=== PATIENT | female | born 1995 | race Caucasian/White ===

== ENCOUNTER 2020-09-26 04:15 | Inpatient (IN) | payer BC ==
[~2020-09-26] VITALS: Ht 170.2 cm; Wt 85.7 kg
[~2020-09-26 04:15] MED LIST: ALEVE220 M1 PO; ALLER-TEC10 MG PO; DEPO-PROVE150 MG/1 M IM
--- NOTE | 2020-09-26 10:20 | PR ---
[facility] [address] [place], [place] [address] Signed Progress Notes IP Datetime Report Generated by CPN: 09/26/2020 10:19 PROGRESS NOTES: [id number] Impression: Reassuring Heart Rate; Rupture of Membranes Procedures: Artificial ROM Plan: Continue Present Management VITAL SIGNS: [id number] Vital Signs: Reviewed EXAM: [id number] Dilatation: 2.0 Effacement: 90 Station: -2 Contractions: Ctx q 2-5 min, tracing poorly MEMBRANES: [id number] Membranes Status: Intact Comments: 25 yo @ 41 1/7 weeks gestation Progressed from 1 to 2cm, very painful with contractions, admitted Epidural placed, pt comfortable and able to nap AROM performed yielding small amount of thick meconium fluid Anticipate augmentation with pitocin if no further cervical change in next 1-2 hours. FETUS A: [id number] FHR Baseline: 130 Variability: Moderate 6-25bpm Accelerations: None Decelerations: None FHR Category: Category I Presentation: Vertex FETUS B: [id number] Signing Physician: Shi Coleman DO Copies: ~ *Electronically Signed* 09/26/20 1019 SHI COLEMAN DO PATIENT NAME: JAD GAMEZ PROGRESS NOTE DATE OF : 97 PHYSICIAN: SHI COLEMAN #: [id number] REPORT IS CONFIDENTIAL AND NOT TO BE RELEASED WITHOUT AUTHORIZATION
--- NOTE | 2020-09-26 15:02 | PR ---
[facility] [address] [place], [place] [address] Signed Progress Notes IP Datetime Report Generated by CPN: 09/26/2020 15:02 PROGRESS NOTES: [id number] Impression: Reassuring Heart Rate; Rupture of Membranes Procedures: Intrauterine Pressure Catheter; Scalp Electrode Plan: Continue Present Management; Augmentation VITAL SIGNS: [id number] Vital Signs: Reviewed EXAM: [id number] Dilatation: 4.0 Effacement: 90 Station: -2 Contractions: Ctx q 2-5 min, tracing poorly MEMBRANES: [id number] Membranes Status: Ruptured Comments: 25 yo @ 41.1 weeks gestation -s/p epidural, comfortable -s/p AROM small amount thick meconium fluid FSE and IUPC placed without difficulty Continue augmentation with pitocin, titrate to adequate contractions FETUS A: [id number] FHR Baseline: 130 Variability: Moderate 6-25bpm Accelerations: None Decelerations: None FHR Category: Category I Presentation: Vertex FETUS B: [id number] Signing Physician: Shi Coleman DO Copies: ~ *Electronically Signed* 09/26/20 1502 SHI COLEMAN DO PATIENT NAME: JAD GAMEZ PROGRESS NOTE DATE OF : 97 PHYSICIAN: SHI COLEMAN #: [id number] REPORT IS CONFIDENTIAL AND NOT TO BE RELEASED WITHOUT AUTHORIZATION
--- NOTE | 2020-09-26 17:34 | PR ---
[facility] [address] [facility] [place], [place] [address] Signed Progress Notes IP Datetime Report Generated by CPRoderick: 09/26/2020 17:34 PROGRESS NOTES: [id number] Impression: Reassuring Heart Rate; Rupture of Membranes Procedures: Amnio Infusion Plan: Continue Present Management; Augmentation VITAL SIGNS: [id number] Vital Signs: Reviewed EXAM: [id number] Dilatation: 4.0 Effacement: 90 Station: -1 Contractions: Ctx q 2-5 min, tracing poorly MEMBRANES: [id number] Membranes Status: Ruptured Comments: Currently adequate contractions, continue pitocin Plan: start amnioinfusion, 250mL bolus then 125mL/hr, recheck cervix in 30 minutes FETUS A: [id number] FHR Baseline: 130 Variability: Moderate 6-25bpm Accelerations: None Decelerations: None FHR Category: Category I Presentation: Vertex FETUS B: [id number] Signing Physician: Shi Coleman DO Copies: ~ *Electronically Signed* 09/26/20 1734 SHI COLEMAN DO PATIENT NAME: JAD GAMEZ PROGRESS NOTE DATE OF : 97 PHYSICIAN: SHI COLEMAN DO RPT #: [id number] REPORT IS CONFIDENTIAL AND NOT TO BE RELEASED WITHOUT AUTHORIZATION
--- NOTE | 2020-09-26 18:03 | PR ---
[facility] [address] [place], [place] [address] Signed Progress Notes IP Datetime Report Generated by CPN: 09/26/2020 18:03 PROGRESS NOTES: [id number] Impression: Non-reassuring Heart Rate Procedures: Amnio Infusion Plan: Deliver- Section VITAL SIGNS: [id number] Vital Signs: Reviewed EXAM: [id number] Dilatation: 4.0 Effacement: 90 Station: -1 Contractions: Ctx q 2-5 min, tracing poorly MEMBRANES: [id number] Membranes Status: Ruptured Comments: Prolonged deceleration, 4 min @ 90 bpm starting shortly after onset of amnioinfusion. Pitocin discontinued. Cervical check: /-2 with significant swelling/edema of cervix. Discussed with pt and FOB non-reassuring heart rate tracing, remote from delivery, with cervical swelling. Recommended delivery. Risks, benefits, alternatives discussed and pt and FOB elect to proceed with . Consent signed. Plan PLTCS with Ancef 2g and Azithromycin 500mg IV. OR team notified, track service worker Dr. Loomis notified, Dr. Moreno (assist) notified. FETUS A: [id number] FHR Baseline: 130 Variability: Moderate 6-25bpm Accelerations: None Decelerations: None FHR Category: Category I Presentation: Vertex FETUS B: [id number] Signing Physician: Shi Coleman DO Copies: ~ *Electronically Signed* 09/26/20 0641 SHI COLEMAN DO PATIENT NAME: JAD GAMEZ DAINA PROGRESS NOTE DATE OF : 97 PHYSICIAN: SHI COLEMAN #: [id number] REPORT IS CONFIDENTIAL AND NOT TO BE RELEASED WITHOUT AUTHORIZATION
--- NOTE | 2020-09-26 19:22 | NUR ---
09/26/201921 Tracy Chapman 1910: PT TO ROOM 103 FOR PACU RECOVERY. AWAKE AND ALERT. VAN WILL AT THE BEDSIDE TO PERFORM TAP BLOCKS. VSS, RESP EVEN AND UNLABORED. O2 SAT >96% ON RA. PT DENIES PAIN AND NAUSEA. FUNDUS FIRM, BLEEDING LIGHT. 1914: TO RIGHT BREAST IN CROSS CRADLE HOLD WITH RN ASSIST. PT REMAINS AWAKE AND ALERT
--- NOTE | 2020-09-27 08:57 | PR ---
[facility] [address] [facility] [place] [address] Signed PP Progress Notes Datetime Report Generated by CPRoderick: 09/27/2020 08:57 SUBJECTIVE: [id number] Pain: Within Normal Limits Nausea/Vomiting: Denies Flatus: Yes Bowel Movement: No Vital Signs: [id number] Vital Signs: Reviewed; Within Normal Limits Cardiovascular: Normal Respiratory: Normal Abdomen/Uterus: Normal Lochia: Normal Breasts: Normal Extremities: Normal Incision: Normal Progress: Normal Exam Comments: NAD, sitting in bed nursing baby RRR No dyspnea FFBU, abd SNTND Dressing without any strikethrough IMPRESSION/PLAN/PROCEDURES: [id number] Impression: Normal Progression Plan: Continue Present Management Procedures: None Progress Notes: POD#1 s/p PLTCS for NRFHT remote from delivery -doing well this am, looking forward to standing at bedside -pain moderately controlled with toradol, will try percocet/ice to incision/abdominal binder -discussed biggs removal once ambulating Anticipate DC to home tomorrow or Tuesday Signing Physician: Shi Coleman DO Copies: *Electronically Signed* 09/27/20 0857 SHI COLEMAN DO PATIENT NAME: JAD GAMEZ PROGRESS NOTE DATE OF : 97 PHYSICIAN: SHI COLEMAN DO RPT #: [id number] REPORT IS CONFIDENTIAL AND NOT TO BE RELEASED WITHOUT AUTHORIZATION [address] [address] Signed ~ *Electronically Signed* 09/27/20 0857 SHI COLEMAN DO PATIENT NAME: JAD GAMEZ PROGRESS NOTE DATE OF : 97 PHYSICIAN: SHI COLEMAN DO RPT #: [id number] REPORT IS CONFIDENTIAL AND NOT TO BE RELEASED WITHOUT AUTHORIZATION
--- NOTE | 2020-09-28 10:29 | PR ---
[facility] [facility] [address] [place], [place] [address] Signed PP Progress Notes Datetime Report Generated by CPRoderick: 09/28/2020 10:29 SUBJECTIVE: [id number] Pain: Within Normal Limits Nausea/Vomiting: Present Flatus: Yes Bowel Movement: No Vital Signs: [id number] Vital Signs: Reviewed; Within Normal Limits Cardiovascular: Normal Respiratory: Normal Abdomen/Uterus: Normal Lochia: Normal Vulva/Perineum: Normal Breasts: Normal Extremities: Normal Incision: Normal Progress: Normal Exam Comments: NAD, standing at bedside and walking around room without difficulty RRR no dyspnea abdomen soft, nontender, nondistended incision c/d/i, no strikethrough on dressing, no bleeding trace edema BLLE IMPRESSION/PLAN/PROCEDURES: [id number] Impression: Normal Progression Plan: Remove Ginger; Discharge Procedures: None Progress Notes: POD#2 s/p PLTCS for nonreassuring FHT remote from delivery -progressing well -hgb 10.4 POD#1 from 12.5 preop -ambulating, voiding, tolerating regular diet, +flatus, neg BM yet -lochia light, well without difficulty anticipate DC to home today Signing Physician: Shi Coleman DO Copies: *Electronically Signed* 09/28/20 1029 SHI COLEMAN DO PATIENT NAME: JAD GAMEZ PROGRESS NOTE DATE OF : 97 PHYSICIAN: SHI COLEMAN DO RPT #: [id number] REPORT IS CONFIDENTIAL AND NOT TO BE RELEASED WITHOUT AUTHORIZATION [address], [place] [address] Signed ~ *Electronically Signed* 09/28/20 1029 SHI COLEMAN DO PATIENT NAME: JAD GAMEZ PROGRESS NOTE DATE OF : 97 PHYSICIAN: SHI COLEMAN DO RPT #: [id number] REPORT IS CONFIDENTIAL AND NOT TO BE RELEASED WITHOUT AUTHORIZATION
--- NOTE | 2020-09-29 10:19 | OR ---
[facility] [address] [place] [address] [place], [place] [address] Signed DATE OF OPERATION: 09/26/2020 SURGEON: Electronically Signed By: SHI COLEMAN DO 09/29/20 1019 PATIENT NAME: JAD GAMEZ OPERATIVE REPORT DATE OF : 97 REPORT #: [id number] PHYSICIAN: SHI COLEMAN DO PCP: TACHO WAYNE PA-C REPORT IS CONFIDENTIAL AND NOT TO BE RELEASED WITHOUT AUTHORIZATION [address] [place], [place] [address] Signed Shi Coleman DO BIOLOGICAL INSPECTOR: Tu Moreno MD. PROCEDURE: Primary low-transverse . COMPLICATIONS: None. BLOOD LOSS: 500 mL. ANESTHESIA: Epidural. FINDINGS: Viable term male in right occiput posterior position with nuchal tight x2. Weight 8 pounds 5 ounces. Apgards 8 and 9 at 1 and 5 minutes, respectively. Normal-appearing uterus, tubes, and ovaries. INDICATIONS: The patient is a 25-year-old female, who presented with spontaneous onset of labor. Rupture of membranes yielded small amount of thick meconium fluid. She received an epidural for pain management. After failing to progress augmentation with Pitocin was started. After 5-1/2 hours with Pitocin, contractions were adequate. However, she began having significant variable decelerations. Amnioinfusion was started, followed by a prolonged deceleration for 4 minutes at 90 bpm . Cervical exam at that point revealed cervix unchanged at 4cm dilated with significant swelling. Risks, benefits, and alternatives were discussed with the patient and father of the baby regarding delivery for non-reassuring heart tones, remote from delivery and they elected to proceed. DESCRIPTION OF PROCEDURE: The patient was taken to the operating room, where epidural was bolused by Anesthesia and she received 2 g Ancef and 500 mg azithromycin for antibiotic prophylaxis. FSE and IUPC were removed. heart tones were auscultated and she was prepped and draped in normal sterile fashion and positioned in supine position with a leftward tilt. A Pfannenstiel incision was made with a scalpel and carried down to the underlying layer of fascia with Bovie cautery. The fascia was incised with scalpel in midline and Electronically Signed By: SHI COLEMAN DO 09/29/20 1019 PATIENT NAME: JAD GAMEZ OPERATIVE REPORT DATE OF : 97 REPORT #: [id number] PHYSICIAN: SHI COLEMAN DO PCP: TACHO WAYNE PA-C REPORT IS CONFIDENTIAL AND NOT TO BE RELEASED WITHOUT AUTHORIZATION [address] [address] Signed extended laterally with Hughes scissors. Inferior margin of fascia was grasped and elevated and underlying rectus muscle was dissected off with blunt and sharp dissection with Hughes scissors. Inferior margin was released, superior margin was grasped and elevated and underlying rectus muscle was dissected off with blunt and sharp dissection with Hughes scissors. Perineum was entered bluntly and peritoneal incision was extended laterally with blunt traction. Jared retractor was placed and hysterotomy was made with a scalpel just above the vesicouterine reflection. Meconium fluid was noted. 's head was easily and gently grasped and elevated from the pelvis to the level of the hysterotomy and delivered. Once head was delivered tight nuchal cord x2 was reduced. The remainder of the 's body was delivered without difficulty. Cord was immediately doubly clamped and cut, baby was handed off to the waiting nursery team. Segment of cord was collected for cord gases. Cord blood was collected for type and Eddie, and additional segment was collected in case needed for culture. Placenta was delivered manually, it was noted to be intact with a centrally inserted 3-vessel cord. Uterus was cleared of membranes and debris, and stay suture was placed at the right apex with 0 Monocryl. Uterus was closed in a double-layer closure first with 0 Monocryl in a running locked fashion and 2nd with 0 Monocryl in an imbricating manner. The pelvis was then irrigated with warm sterile saline and excellent hemostasis was noted. A cell sheet was applied to the hysterotomy, peritoneum was closed with 2-0 Vicryl in a running fashion. Rectus muscles were reapproximated at midline with 0 Vicryl in a simple interrupted fashion with three interrupted sutures. Rectus muscle was then inspected for any perforating vessels, which were cauterized with Bovie cautery. ACell powder was then applied. Fascia was closed with 0 Vicryl in a running fashion, first from the right apex to midline and then from the left apex to midline, meeting in the middle. The subcutaneous layer was inspected for perforating vessels which were cauterized with Bovie cautery. Subcutaneous layer was closed with 3-0 Vicryl in a running fashion. Skin was closed with deepti. Uterus was Crede'd with minimal clots noted. Sponge and instrument counts were correct x2 and the patient was taken to recovery room with baby in stable condition. Shi Coleman DO Electronically Signed By: SHI COLEMAN DO 09/29/20 1019 PATIENT NAME: JAD GAMEZ OPERATIVE REPORT DATE OF : 97 REPORT #: [id number] PHYSICIAN: SHI COLEMAN DO PCP: TACHO WAYNE PA-C REPORT IS CONFIDENTIAL AND NOT TO BE RELEASED WITHOUT AUTHORIZATION [facility] [address] [place] [address] [place], [place] [address] Signed DUDLEY /[id number] Copies: ~ Electronically Signed By: SHI COLEMAN DO 09/29/20 1019 PATIENT NAME: SERA GAMEZSA LAMA OPERATIVE REPORT DATE OF : 97 REPORT #: [id number] PHYSICIAN: SHI COLEMAN DO PCP: TACHO WAYNE PA-C REPORT IS CONFIDENTIAL AND NOT TO BE RELEASED WITHOUT AUTHORIZATION
== END 2020-09-28 10:50 | disposition home or self-care (01) | DRG 787 ==
LOC: FBCO 04:15 → FBC 06:30
PROVIDERS: ADMIT Obstetrics & Gynecology; ATTEND Obstetrics & Gynecology
PROC: 3E0T3BZ Introduction of Anesthetic Agent into Peripheral Nerves and Plexi, Percutaneous Approach (ICD-10-PCS; 2020-09-26)
PROC: 3E0T33Z Introduction of Anti-inflammatory into Peripheral Nerves and Plexi, Percutaneous Approach (ICD-10-PCS; 2020-09-26)
PROC: 10907ZC Drainage of Amniotic Fluid, Therapeutic from Products of Conception, Via Natural or Artificial Opening (ICD-10-PCS; 2020-09-26)
PROC: 10H07YZ Insertion of Other Device into Products of Conception, Via Natural or Artificial Opening (ICD-10-PCS; 2020-09-26)
PROC: 3E0E7GC Introduction of Other Therapeutic Substance into Products of Conception, Via Natural or Artificial Opening (ICD-10-PCS; 2020-09-26)
PROC: 00HU33Z Insertion of Infusion Device into Spinal Canal, Percutaneous Approach (ICD-10-PCS; 2020-09-26)
PROC: 3E0R3BZ Introduction of Anesthetic Agent into Spinal Canal, Percutaneous Approach (ICD-10-PCS; 2020-09-26)
PROC: 10D00Z1 Extraction of Products of Conception, Low, Open Approach (ICD-10-PCS; principal; 2020-09-26 18:22)
DX: O64.0XX0 Obstructed labor due to incomplete rotation of fetal head, not applicable or unspecified (principal); O99.355 Diseases of the nervous system complicating the puerperium; O48.0 Post-term pregnancy; O77.0 Labor and delivery complicated by meconium in amniotic fluid; O69.1XX0 Labor and delivery complicated by cord around neck, with compression, not applicable or unspecified; Z3A.41 41 weeks gestation of pregnancy; Z37.0 Single live birth; Z20.822 Contact with and (suspected) exposure to COVID-19; O76 Abnormality in fetal heart rate and rhythm complicating labor and delivery; G89.18 Other acute postprocedural pain; O99.892 Other specified diseases and conditions complicating childbirth; R12 Heartburn; Z88.2 Allergy status to sulfonamides; Z87.891 Personal history of nicotine dependence
CPT/HCPCS: 01961; 64488; 76942; 82803; 85027; C9803; J0456; J0690; J1100; J1650; J1885; J2001; J2405; J2590; J2795; J3010; J7060; J7121; U0003